=== PATIENT | female | born 1955 | race Caucasian/White ===

== ENCOUNTER → 2017-01-12 | Outpatient (CLI) | payer BC, OTHER ==
--- NOTE | 2017-01-16 07:41 | MM ---
Reason for exam: screening (asymptomatic). Last mammogram was performed 1 year and 1 month ago. History: Patient is postmenopausal and is nulliparous. Saline implants in both breasts, 1988. Physical Findings: A clinical breast exam by your physician is recommended on an annual basis and results should be correlated with mammographic findings. MG Screening Mammo Implant/CAD Bilateral CC, MLO, and ID view(s) were taken. Prior study comparison: December 07, 2015, bilateral MG screening mammo implant/CAD. July 31, 2008, bilateral diagnostic digital mammog. Bilateral breast prothesis. ASSESSMENT: Benign, BI-RAD 2 RECOMMENDATION: Routine screening mammogram of both breasts in 1 year.
== END | disposition home or self-care (01) ==
LOC: RADMAMWWP 07:01
PROVIDERS: ATTEND Family Medicine
DX: Z12.31 Encounter for screening mammogram for malignant neoplasm of breast (principal)

== ENCOUNTER 2017-08-14 10:09 | Emergency (ER) | payer BC ==
[2017-08-14 10:25] VITALS: TEMP 97.8
[2017-08-14] MEDS ORDERED: LORazepam 1 MG TAB PO STA (11:31)
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
[2017-08-14 12:16] VITALS: BP 148/81; PULSE 76; RESP 18
== END 2017-08-14 12:31 | disposition home or self-care (01) ==
LOC: EC 10:09
DX: S10.93XA Contusion of unspecified part of neck, initial encounter (principal); F41.9 Anxiety disorder, unspecified; E78.5 Hyperlipidemia, unspecified; E03.9 Hypothyroidism, unspecified; Z87.891 Personal history of nicotine dependence; Z79.899 Other long term (current) drug therapy; W50.1XXA Accidental kick by another person, initial encounter; Y92.211 Elementary school as the place of occurrence of the external cause
CPT/HCPCS: 70260; 72040; 99284

== ENCOUNTER 2017-10-03 15:52 | Emergency (ER) | payer BC, OTHER ==
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
[2017-10-03 16:36] VITALS: BP 134/81; PULSE 80; RESP 18; TEMP 98
--- NOTE | 2017-10-03 16:53 | XR ---
EXAMINATION TYPE: XR mandible complete DATE OF EXAM: 10/03/2017 COMPARISON: NONE HISTORY: Left-sided jaw pain TECHNIQUE: 5 views FINDINGS: Mandibular ring is intact. Temporomandibular joint spaces are normal. I see no fracture. Ma ndibular condyles appear intact. IMPRESSION: Negative mandible exam.
== END 2017-10-03 17:37 | disposition home or self-care (01) ==
LOC: EC 15:52
DX: S00.83XA Contusion of other part of head, initial encounter (principal); E78.5 Hyperlipidemia, unspecified; E03.9 Hypothyroidism, unspecified; Z87.891 Personal history of nicotine dependence; Z79.899 Other long term (current) drug therapy; W50.0XXA Accidental hit or strike by another person, initial encounter; Y99.0 Civilian activity done for income or pay
CPT/HCPCS: 70110; 99283

== ENCOUNTER 2017-10-11 15:52 | Emergency (ER) | payer BC, OTHER ==
[2017-10-11 16:01] VITALS: PULSE 80; RESP 20; TEMP 98.1
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
[2017-10-11 18:39] VITALS: BP 150/84
== END 2017-10-11 18:17 | disposition home or self-care (01) ==
LOC: EC 15:52
DX: S09.90XA Unspecified injury of head, initial encounter (principal); E78.5 Hyperlipidemia, unspecified; E03.9 Hypothyroidism, unspecified; F17.200 Nicotine dependence, unspecified, uncomplicated; Z98.890 Other specified postprocedural states; Z79.899 Other long term (current) drug therapy; Y04.0XXA Assault by unarmed brawl or fight, initial encounter; Y92.69 Other specified industrial and construction area as the place of occurrence of the external cause; Y99.0 Civilian activity done for income or pay
CPT/HCPCS: 70450; 70486; 99284

== ENCOUNTER → 2017-12-10 | Outpatient (CLI) | payer OTHER ==
--- NOTE | 2017-12-11 00:12 | MR ---
EXAMINATION TYPE: MR tmj wo con DATE OF EXAM: 12/10/2017 COMPARISON: HISTORY: Contusion of face, jaw pain Standard multiplanar, multisequence MRI departmental protocol Multiplanar, multisequence images of the temporomandibular joints were acquired. FINDINGS: There is some increased signal in the articular surface of the right mandibular condyle on the proton density images consistent with some erosion and arthritic change. The menisci are anterior ly displaced. I see no fracture line. There is fairly normal movement of the mandibular condyles on t he open and closed mouth position. IMPRESSION: Abnormal subluxation of the menisci anteriorly in the open and closed mouth position. Small erosion on the right mandibular condyle consistent with arthritic disease. No fracture.
== END | disposition home or self-care (01) ==
LOC: RADMRIMAIN 06:01
PROVIDERS: ATTEND Emergency Medicine
DX: S03.00XA Dislocation of jaw, unspecified side, initial encounter (principal); M26.69 Other specified disorders of temporomandibular joint
CPT/HCPCS: 70336

== ENCOUNTER 2022-12-14 16:17 | Observation (INO) | payer MEDICARE ==
[2022-12-14] MEDS ORDERED: ASPIRIN 81 MG PO STA (16:42)
[2022-12-14] MEDS ORDERED: SODIUM CHLORIDE 0.9% 500 ML 500 ML IV STA (16:42)
[2022-12-14 17:06] LABS: Basophils % (A) 0 %; Eosinophils # (A) 0.2 k/uL (0-0.7); Eosinophils % (A) 3 %; HCT 40.4 % (34.0-46.0); HGB 13.1 gm/dL (11.4-16.0); Lymphocytes # (A) 2.7 k/uL (1.0-4.8); Lymphocytes % (A) 32 %; MCH 30.7 pg (25.0-35.0); MCHC 32.4 g/dL (31.0-37.0); MCV 94.9 fL (80.0-100.0); Mean Platelet Volume 8.2; Monocytes # (A) 0.4 k/uL (0-1.0); Monocytes % (A) 5 %; Neutrophils # (A) 4.9 k/uL (1.3-7.7); Neutrophils % (A) 58 %; Platelet Count 200 k/uL (150-450); RBC 4.26 m/uL (3.80-5.40); RDW 14.2 % (11.5-15.5); WBC 8.4 k/uL (3.8-10.6)
[2022-12-14 17:19] LABS: ALT 34 U/L (4-34); AST 44 U/L (14-36); African American GFR (CKD) >90 (>60 ml/min/1.73 sqM); Albumin 3.9 g/dL (3.5-5.0); Alkaline Phosphatase 95 U/L (38-126); Anion Gap 9 mmol/L; Blood Urea Nitrogen 14 mg/dL (7-17); Calcium 9.2 mg/dL (8.4-10.2); Carbon Dioxide 21 mmol/L (22-30); Chloride 106 mmol/L (98-107); Glucose 102 mg/dL (74-99); Magnesium 1.6 mg/dL (1.6-2.3); Non-African American GFR(CKD) >90 (>60 ml/min/1.73 sqM); Sodium 136 mmol/L (137-145); Total Bilirubin 0.9 mg/dL (0.2-1.3); Total Protein 6.9 g/dL (6.3-8.2)
--- NOTE | 2022-12-14 17:20 | XR ---
EXAMINATION TYPE: XR chest 2V DATE OF EXAM: 12/14/2022 5:09 PM COMPARISON: Chest x-ray 11/17/2015 TECHNIQUE: XR chest 2V . CLINICAL INDICATION:Female, 67 years old with history of Chest Pain; FINDINGS: Lungs/Pleura: There is no evidence of pleural effusion, focal consolidation, or pneumothorax. Pulmonary vascularity: Unremarkable. Heart/mediastinum: Cardiomediastinal silhouette is unremarkable. Musculoskeletal: Multiple level degenerative disc disease changes seen throughout the spine. IMPRESSION: No acute cardiopulmonary disease/process.
[2022-12-14 17:22] LABS: Partial Thromboplastin Time 22.4 sec (22.0-30.0); Prothrombin Time 10.1 sec (9.0-12.0)
[2022-12-14 17:28] LABS: Potassium 4.6 mmol/L (3.5-5.1)
--- NOTE | 2022-12-14 17:34 | ED ---
Chest Pain HPI - General Chief Complaint: Chest Pain Stated Complaint: chest tightness Time Seen by Provider: 12/14/22 16:30 Source: patient Mode of arrival: wheelchair Limitations: no limitations - History of Present Illness Initial Comments: 67-year-old female presenting with chief complaint of chest pain. Patient states that a pressure-like sensation in the center of her chest started today. She does have some pain near the left shoulder blade as well. She does not note shortness of breath. No palpitations. She does note some discomfort to the left arm accompanied by tingling. No abdominal pain, nausea, vomiting. No cough, congestion, sore throat, fever, chills. No weakness. No alleviating or aggravating factors. - Related Data Home Medications Medication Instructions Recorded Confirmed Cyanocobalamin [Vitamin B-12 1,000 mcg SQ QMONTHLY 12/14/22 12/14/22 Injection] Levothyroxine Sodium [Synthroid] 137 mcg PO DAILY 12/14/22 12/14/22 Allergies Allergy/AdvReac Type Severity Reaction Status Date / Time No Known Allergies Allergy Verified 12/14/22 19:16 Review of Systems ROS Statement: Those systems with pertinent positive or pertinent negative responses have been documented in the HPI. ROS Other: All systems not noted in ROS Statement are negative. EKG Findings - EKG Comments: EKG Findings:: Sinus rhythm ventricular rate 94. OK interval 158. QRS 78. QT 352. QTC 404. Normal axis. Past Medical History Past Medical History: Hyperlipidemia, Thyroid Disorder Additional Past Medical History / Comment(s): back pain, cervical pain, L shoulder pain, numbness/tingling L shoulder, L arm and L hand at times for years, hypothyroid, recent R thumb sprain-healed, current R ankle tendon tear. History of Any Multi-Drug Resistant Organisms: None Reported Past Surgical History: Appendectomy, Breast Surgery, Orthopedic Surgery Additional Past Surgical History / Comment(s): Thyroid chemically removed, L ankle fx with pinning, colonoscopy, bilateral breast augmentation, Past Anesthesia/Blood Transfusion Reactions: No Reported Reaction Past Psychological History: No Psychological Hx Reported Smoking Status: Never smoker Past Alcohol Use History: Daily Past Drug Use History: None Reported - Past Family History Father Family Medical History: Coronary Artery Disease (CAD), Renal Disease Additional Family Medical History / Comment(s): Father of kidney failure at the age of 87yrs. Mother Family Medical History: Osteoarthritis (OA) Additional Family Medical History / Comment(s): Mother at 84 yrs. General Exam Limitations: no limitations General appearance: alert, in no apparent distress Head exam: Present: atraumatic, normocephalic, normal inspection Eye exam: Present: normal appearance, EOMI Neck exam: Present: normal inspection, full ROM Respiratory exam: Present: normal lung sounds bilaterally. Absent: respiratory distress, wheezes, rales, rhonchi, stridor Cardiovascular Exam: Present: regular rate, normal rhythm, normal heart sounds. Absent: systolic murmur, diastolic murmur, rubs, gallop, clicks GI/Abdominal exam: Present: soft, tenderness. Absent: distended, guarding, rebound, rigid Neurological exam: Present: alert, oriented X3, CN II-XII intact Psychiatric exam: Present: normal affect, normal mood Skin exam: Present: warm, dry, intact, normal color. Absent: rash Course Vital Signs 12/14/22 12/14/22 16:19 19:21 Temperature 98.4 F Pulse Rate 98 84 Respiratory 16 18 Rate Blood Pressure 151/96 135/84 O2 Sat by Pulse 97 98 Oximetry Chest Pain MDM - MDM Was pt. sent in by a medical professional or institution (, PA, DOCUMENT MANAGEMENT CONSULTANT, urgent care, hospital, or fpc...) When possible be specific @ -Sent by PCP Dr. Marroquin Did you speak to anyone other than the patient for history (EMS, parent, family, police, friend...)? What history was obtained from this source @ -No Did you review nursing and triage notes (agree or disagree)? Why? @ -I reviewed and agree with nursing and triage notes Were old charts reviewed (outside hosp., previous admission, EMS record, old EKG, old radiological studies, urgent care reports/EKG's, fpc records)? Report findings @ -No old charts were reviewed Differential Diagnosis (chest pain, altered mental status, abdominal pain women, abdominal pain men, vaginal bleeding, weakness, fever, dyspnea, syncope, headache, dizziness, GI bleed, back pain, seizure, CVA, palpatations, mental health, musculoskeletal)? @ -MDM Differential Chest Pain: Stable Angina, Unstable Angina, STEMI, NSTEMI Aortic Dissection, Pneumothorax, Musculoskeletal, Esophageal Spasm GERD, Cholecystitis, Pancreatitis, Zoster This is not meant to be an all-inclusive list. EKG interpreted by me (3pts min.). @ -As above X-rays interpreted by me (1pt min.). @ -Chest x-ray shows no acute process CT interpreted by me (1pt min.). @ -None done U/S interpreted by me (1pt. min.). @ -None done What testing was considered but not performed or refused? (CT, X-rays, U/S, labs)? Why? @ -None What meds were considered but not given or refused? Why? @ -None Did you discuss the management of the patient with other professionals (professionals i.e. , PA, DOCUMENT MANAGEMENT CONSULTANT, lab, RT, psych nurse, social media content manager, denture technician, teacher, quarantine officer, case checker)? Give summary @ -I spoke with Dr. Pham who accepted admission Was smoking cessation discussed for >3mins.? @ -No Was critical care preformed (if so, how long)? @ -No Were there social determinants of health that impacted care today? How? (Homelessness, low income, unemployed, alcoholism, drug addiction, transportation, low edu. Level, literacy, decrease access to med. care, long term, rehab)? @ -No Was there de-escalation of care discussed even if they declined (Discuss DNR or withdrawal of care, Hospice)? DNR status @ -No What co-morbidities impacted this encounter? (DM, HTN, Smoking, COPD, CAD, Cancer, CVA, ARF, Chemo, Hep., AIDS, mental health diagnosis, sleep apnea, morbid obesity)? @ -hyperlipidemia, obesity Was patient admitted / discharged? Hospital course, mention meds given and route, prescriptions, significant lab abnormalities, going to OR and other pertinent info. @ -67-year-old female presenting with chief complaint of chest pain that started today. Physical examination is unremarkable. Patient has negative troponin and d-dimer. Chest x-ray shows no acute process. EKG shows no acute changes. Patient will be admitted for observation and evaluation by cardiology in the morning. She is agreeable with this plan. I discussed this case with my attending Dr. Aranda Undiagnosed new problem with uncertain prognosis? @ -No Drug Therapy requiring intensive monitoring for toxicity (Heparin, Nitro, Insulin, Cardizem)? @ -No Were any procedures done? @ -No Diagnosis/symptom? @ -Chest pain Acute, or Chronic, or Acute on Chronic? @ -Acute Uncomplicated (without systemic symptoms) or Complicated (systemic symptoms)? @ -Complicated Side effects of treatment? @ -No Exacerbation, Progression, or Severe Exacerbation? @ -No Poses a threat to life or bodily function? How? (Chest pain, USA, SC, pneumonia, PE, COPD, DKA, ARF, appy, cholecystitis, CVA, Diverticulitis, Homicidal, Karla cidal, threat to staff... and all critical care pts) @ -Yes Disposition Clinical Impression: Chest pain Disposition: ADMITTED IP TO THIS HOSP Condition: Fair Time of Disposition: 18:40
[2022-12-14] MEDS ORDERED: LORazepam 1 MG TAB PO STA (18:24)
[2022-12-14] MEDS ORDERED: NALOXONE 0.4 MG/ML 1 ML VIAL IV PRN (18:37)
[2022-12-14] MEDS ORDERED: ACETAMINOPHEN TAB 325 MG TAB PO PRN (18:37)
[2022-12-14] MEDS ORDERED: LORazepam 0.5 MG TAB PO PRN (18:37)
[2022-12-15] MEDS ORDERED: DOBUTamine DRIP for NUC MED 500 MG in DEXTROSE/WATER 1 250ML.BAG IV PRN (07:38)
[2022-12-15] MEDS ORDERED: DOBUTamine DRIP for NUC MED 500 MG/250 ML BAG IV ONE (09:00)
[2022-12-15 09:02] VITALS: BP 123/86; PULSE 77; RESP 17; TEMP 97.5
--- NOTE | 2022-12-15 09:55 | P.CRDCN ---
History of Present Illness History of present illness: HISTORY OF PRESENT ILLNESS: This is a 67-year-old female with a past medical history significant for hyperlipidemia not requiring statin therapy, hypothyroidism, morbid obesity, and Alvaro-Valdez. Patient does not follow with a radio talk show host. We have been asked to see the patient in consultation for chest pain. Patient examined at the bedside. Patient states on Sunday night she began to have swelling in her left lower extremity. On , she began to have chest pain. She states this started after she came back from walking from a neighbors house. She states the pain felt like a heaviness in the middle of her chest. She states that she also had back pain at that time. She also reports she has been having some tingling in her left arm. She states that she recently gets very short of breath with any exertion. She states that she was recently diagnosed with Alvaro-Valdez virus and has been fairly inactive for the past 2 months. * EKG reveals sinus mechanism with no signs of acute ischemia * Chest xray negative for acute process * Laboratory data: WBC 8.4. Hemoglobin 13.1. Platelet count 200. D-dimer 0.49. Sodium 136. Potassium 4.6. BUN 14. Creatinine 0.53. Troponin 3 * Current home cardiac medications include none * Patient underwent stress echocardiogram in October 2015 which was negative for ischemia REVIEW OF SYSTEMS: At the time of my exam: CONSTITUTIONAL: Denies fever or chills. HEENT: Denies blurred vision, vision changes, or eye pain. Denies hemoptysis CARDIOVASCULAR: Denies chest pain. Denies orthopnea. Denies PND. Denies palpitations RESPIRATORY: Denies shortness of breath. GASTROINTESTINAL: Denies abdominal pain. Denies nausea or vomiting. HEMATOLOGIC: Denies bleeding disorders. GENITOURINARY: Denies any blood in urine. SKIN: Denies pruitis. Denies rash. PHYSICAL EXAM: VITAL SIGNS: Reviewed. GENERAL: Well-developed in no acute distress. HEENT: Head is normocephalic. Pupils are equal, round. Sclerae anicteric. Mucous membranes of the mouth are moist. Neck supple. No JVD or thyromegaly LUNGS: Respirations even and unlabored. Lungs essentially clear to auscultation bilaterally. HEART: Regular rate and rhythm. S1 and S2 heard. ABDOMEN: Soft. Nondistended. Nontender. EXTREMITIES: Normal range of motion. No clubbing or cyanosis. Peripheral pulses intact. No lower extremity edema NEUROLOGIC: Awake and alert. Oriented x 3. ASSESSMENT: Chest pain, troponins negative 3 Hyperlipidemia, not requiring statin therapy per patient Recent diagnosis of Alvaro-Valdez Hypothyroidism Morbid obesity: BMI 41.1 PLAN: An acute coronary event has been ruled out Obtain 2-D echo to assess cardiac structure and function Patient will undergo dobutamine stress test today to assess for ischemia Lipid panel and hemoglobin A1c pending If stress test is negative, patient may be discharged home today from a cardiac standpoint Nurse practitioner note has been reviewed by physician. Signing provider agrees with the documented findings, assessment, and plan of care. Dr. Junior's Addendum Atypical description of her chest pain Risk factors for coronary artery disease includes dyslipidemia, morbid obesity Patient is unable to walk more than one block due to poor exercise capacity. We will obtain dobutamine stress echo. If echo and stress test are negative she can go home. Importance of daily exercise, increasing exercise capacity and importance of weight reduction was emphasized. Patient understands and will follow-up in cardiology clinic I have personally seen and examined the patient. I have personally performed all the components of medical care documented above including detailed hisotry, review of system, physican exam, MDM and formulating the assessment and plan. I have personally reviewed the relevant labs, imaging and other diagnostics. I have discussed this in detail with my SURVEY WORKER who has helped me with this documentation. I have carefully reviewed this document before finalizing. Total time spent reviewing medical chart, examining patient, counselling patient and documentation [45] mins Thank you for letting cardiology team participating in this patient's care. Dr. Carlos Junior MD Cardiovascular Disease Past Medical History Past Medical History: Hyperlipidemia, Thyroid Disorder Additional Past Medical History / Comment(s): back pain, cervical pain, L shoulder pain, numbness/tingling L shoulder, L arm and L hand at times for years, hypothyroid, recent R thumb sprain-healed, current R ankle tendon tear. History of Any Multi-Drug Resistant Organisms: None Reported Past Surgical History: Appendectomy, Breast Surgery, Orthopedic Surgery Additional Past Surgical History / Comment(s): Thyroid chemically removed, L ankle fx with pinning, colonoscopy, bilateral breast augmentation, Past Anesthesia/Blood Transfusion Reactions: No Reported Reaction Past Psychological History: No Psychological Hx Reported Smoking Status: Never smoker Past Alcohol Use History: Daily Past Drug Use History: None Reported - Past Family History Father Family Medical History: Coronary Artery Disease (CAD), Renal Disease Additional Family Medical History / Comment(s): Father of kidney failure at the age of 87yrs. Mother Family Medical History: Osteoarthritis (OA) Additional Family Medical History / Comment(s): Mother at 84 yrs. Medications and Allergies Home Medications Medication Instructions Recorded Confirmed Type Cyanocobalamin [Vitamin B-12 1,000 mcg SQ QMONTHLY 12/14/22 12/14/22 History Injection] Levothyroxine Sodium [Synthroid] 137 mcg PO DAILY 12/14/22 12/14/22 History Allergies Allergy/AdvReac Type Severity Reaction Status Date / Time No Known Allergies Allergy Verified 12/14/22 19:16 Physical Exam Vitals: Vital Signs Temp Pulse Pulse Resp BP BP Pulse Ox 12/15/22 01:30 97.9 F 92 18 118/73 96 12/14/22 21:13 97.6 F 78 16 144/87 96 12/14/22 19:21 84 18 135/84 98 12/14/22 16:19 98.4 F 98 16 151/96 97 Intake and Output 12/14/22 12/15/22 12/15/22 22:59 06:59 14:59 Other: # Voids 1 3 Weight 112.037 kg Results 12/14/22 16:58 12/14/22 16:58 Cardiac Enzymes 12/14/22 12/14/22 12/14/22 Range/Units 16:58 16:58 22:02 AST 44 H (14-36) U/L Troponin I <0.012 <0.012 (0.000-0.034) ng/mL 12/15/22 Range/Units 00:05 AST (14-36) U/L Troponin I <0.012 (0.000-0.034) ng/mL Coagulation 12/14/22 Range/Units 16:58 PT 10.1 (9.0-12.0) sec APTT 22.4 (22.0-30.0) sec CBC 12/14/22 Range/Units 16:58 WBC 8.4 (3.8-10.6) k/uL RBC 4.26 (3.80-5.40) m/uL Hgb 13.1 (11.4-16.0) gm/dL Hct 40.4 (34.0-46.0) % Plt Count 200 (150-450) k/uL Comprehensive Metabolic Panel 12/14/22 Range/Units 16:58 Sodium 136 L (137-145) mmol/L Potassium 4.6 (3.5-5.1) mmol/L Chloride 106 (98-107) mmol/L Carbon Dioxide 21 L (22-30) mmol/L BUN 14 (7-17) mg/dL Creatinine 0.53 (0.52-1.04) mg/dL Glucose 102 H (74-99) mg/dL Calcium 9.2 (8.4-10.2) mg/dL AST 44 H (14-36) U/L ALT 34 (4-34) U/L Alkaline Phosphatase 95 (38-126) U/L Total Protein 6.9 (6.3-8.2) g/dL Albumin 3.9 (3.5-5.0) g/dL Current Medications Generic Name Dose Route Start Last Admin Trade Name Freq PRN Reason Stop Dose Admin Acetaminophen 650 mg 12/14/22 18:37 Acetaminophen Tab 325 Mg Tab PO Q6HR PRN Mild Pain or Fever > 100.5 Lorazepam 0.5 mg 12/14/22 18:37 Lorazepam 0.5 Mg Tab PO Q6HR PRN Anxiety Naloxone HCl 0.2 mg 12/14/22 18:37 Naloxone 0.4 Mg/Ml 1 Ml Vial IV Q2M PRN Opioid Reversal Intake and Output 12/14/22 12/15/22 12/15/22 22:59 06:59 14:59 Other: # Voids 1 3 Weight 112.037 kg 12/14/22 16:58 12/14/22 16:58
--- NOTE | 2022-12-15 13:06 | CA ---
Dobutamine Stress Echocardiogram Report Lita Adair Age: 67 Gender: F : 1955 Exam Date: 12/15/2022 12:08 Exam Location: [facility] Ordering Physician: Deena Moreno Referring Physician: [id number] Carpenter Maintenance: Sonia Alvarado [facility] Technologist: Ht (in): 65 Wt (lb): 247 Procedure CPT: Indication: CP ICD-9 Codes: Rhythm: Patient History: Cardiac Medications: SEE CHART Medications in past 24 hours: Contrast: N/A Total Dose (mL): Stress Results Protocol: Dobutamine Peak Dose (???g/kg/min): 20 Duration (min:sec): Atropine:(mg) None Target HR: 131 Double Product: [id number] Resting HR: 83 Resting BP: 128 / 74 Peak HR: 153 Peak BP: 167 / 65 Max Predicted HR: 154 99 % Max Predicted HR Stress Summary: BP Response: Reason for Termination: Exceeded target heart rate (85% max predicted) Cardiac Symptoms: NO SYMPTOMS ECG Analysis Resting EKG: Normal sinus rhythm, normal axis and no blocks heart rate 83 beats a minute Stress EKG: No significant ST-T wave changes diagnostic for ischemia by ST segment analysis Arrhythmia: None Echo Analysis Base Echo Analysis: Normal global and regional wall motion at rest Low Echo Anaylsis: Appropriate augmentation of all echocardiographic segments at low-dose dobutamine Peak Echo Analysis: Appropriate augmentation of all echocardiographic segments at Peak-dose dobutamine Recovery Echo: Appropriate augmentation of all echocardiographic segments at recovery MEASUREMENTS (Male/Female) Normal Values CONCLUSIONS Normal resting wall motion Nonischemic echocardiographic response to dobutamine infusion Nonischemic EKG response to dobutamine infusion Overall normal dobutamine stress echo cardiographic study Dr Carlos Junior (Electronically Signed) Final Date: 15 December 2022 13:05
--- NOTE | 2022-12-15 13:11 | CA ---
Transthoracic Echo Report Name: Lita Adair Age: 67 Gender: F : 1955 Exam Date: 12/15/2022 10:36 Exam Location: [facility] Ht (in): 65 Wt (lb): 247 Ordering Physician: Deena Moreno Attending/Referring Phys: [id number], Tiffanie Oil Spot Washer Jose Summers Procedure CPT: Indications: LV function, CP Cardiac Hx: Technical Quality: Technically difficult study Contrast 1: Total Dose (mL): Contrast 2: Total Dose (mL): MEASUREMENTS (Male / Female) Normal Values 2D ECHO LV Diastolic Diameter PLAX 4.5 cm 4.2 - 5.9 / 3.9 - 5.3 cm LV Systolic Diameter PLAX 3.0 cm IVS Diastolic Thickness 0.8 cm 0.6 - 1.0 / 0.6 - 0.9 cm LVPW Diastolic Thickness 0.9 cm 0.6 - 1.0 / 0.6 - 0.9 cm LV Relative Wall Thickness 0.4 RV Internal Dim ED PLAX 3.1 cm LVOT Diameter 1.9 cm Aortic Root Diameter 2.8 cm LA Systolic Diameter LX 3.1 cm 3.0 - 4.0 / 2.7 - 3.8 cm LV Diastolic Volume MOD BP 56.8 cm??? 67 - 155 / 56 - 104 cm??? LV Systolic Volume MOD BP 32.6 cm??? 22 - 58 / 19 - 49 cm??? LV Ejection Fraction MOD BP 42.6 % >= 55 % LV Cardiac Index MOD BP 780.8 cm???/min???m??? LV Diastolic Volume MOD 4C 58.5 cm??? LV Systolic Volume MOD 4C 29.5 cm??? LV Ejection Fraction MOD 4C 49.6 % LV Cardiac Index MOD 4C 936.8 cm???/min???m??? LV Diastolic Length 4C 6.4 cm LV Systolic Length 4C 6.1 cm LV Diastolic Volume MOD 2C 53.6 cm??? LV Systolic Volume MOD 2C 33.6 cm??? LV Ejection Fraction MOD 2C 37.4 % LV Cardiac Index MOD 2C 646.4 cm???/min???m??? LV Diastolic Length 2C 6.2 cm LV Systolic Length 2C 5.6 cm LA Volume 39.6 cm??? 18 - 58 / 22 - 52 cm??? Ascending Aorta Diameter 2.8 cm DOPPLER AV Peak Velocity 119.6 cm/s AV Peak Gradient 5.7 mmHg LVOT Peak Velocity 89.4 cm/s LVOT Peak Gradient 3.2 mmHg AV Area Cont Eq pk 2.1 cm??? MV Peak Velocity 101.7 cm/s MV Peak Gradient 4.1 mmHg MV Mean Velocity 49.5 cm/s MV Mean Gradient 1.3 mmHg MV Velocity Time Integral 27.4 cm MV Area PHT 4.5 cm??? MR Peak Velocity 194.0 cm/s MR Peak Gradient 15.0 mmHg Mitral E Point Velocity 73.9 cm/s Mitral A Point Velocity 85.3 cm/s Mitral E to A Ratio 0.9 MV Deceleration Time 167.4 ms TR Peak Velocity 111.5 cm/s TR Peak Gradient 5.0 mmHg Right Ventricular Systolic Press 10.0 mmHg PV Peak Velocity 109.4 cm/s PV Peak Gradient 4.8 mmHg FINDINGS Left Ventricle Normal LV size and wall thickness. Left ventricular ejection fraction is estimated at _55-60 %. no obvious regional wall motion abnormality at rest. No significant diastolic dysfunction Right Ventricle Normal right ventricular size. Right Atrium Normal right atrial size. Left Atrium Normal left atrial size. Mitral Valve Structurally normal mitral valve. Trace MR. Aortic Valve Trileaflet aortic valve. No aortic valve stenosis or regurgitation. Tricuspid Valve Structurally normal tricuspid valve. Trace TR. Pulmonic Valve Pulmonic valve not well visualized. No pulmonic regurgitation. Pericardium No pericardial effusion. Aorta Normal size aortic root and proximal ascending aorta. CONCLUSIONS Normal LV size, wall thickness and systolic function. LVEF estimated at 55% No obvious regional wall motion abnormality at rest. No significant diastolic dysfunction. No significant valvular dysfunction No significant chamber size abnormality No prior echo in [facility] database to compare Previewed by: Dr Carlos Junior (Electronically Signed) Final Date: 15 December 2022 13:10
--- NOTE | 2022-12-15 13:30 | P.HPIM ---
History of Present Illness H&P Date: 12/15/22 History of present illness; patient is a 67-year-old lady with past medical hist ory significant for hypothyroidism, who presented to the ER because of chest pressure. Patient stated she was all right this afternoon when she started noticing chest pressure, it was central in location radiating to her left shoulder, denied any aggravating or relieving factors associated with this chest pressure, denies any shortness of breath associated with it. Denies any palpitations. No complain of orthopnea or PND. Denies any swelling of feet. Patient did not have any such episodes in the past. Because of chest pressure, patient came to the ER Initial lab work done in the ER showed WBC 8.4, hemoglobin 13.1, platelet count 200, sodium, potassium 4.6, BUN 14, creatinine 0.53, troponin 0.012 EKG done in the ER showed heart rate 94, QRS 78, QTC 404, no acute ST segment changes seen in any leads, no T-wave inversions Chest x-ray done in the ER no acute cardiopulmonary process REVIEW OF SYSTEMS: CONSTITUTIONAL: No fever, no malaise, no fatigue. HEENT: No recent visual problems or hearing problems. Denied any sore throat. CARDIOVASCULAR: As mentioned in HPI PULMONARY: As mentioned in HPI GASTROINTESTINAL: No diarrhea, no nausea, no vomiting, no abdominal pain. NEUROLOGICAL: No headaches, no weakness, no numbness. HEMATOLOGICAL: Denies any bleeding or petechiae. GENITOURINARY: Denies any burning micturition, frequency, or urgency. MUSCULOSKELETAL/RHEUMATOLOGICAL: Denies any joint pain, swelling, or any muscle pain. ENDOCRINE: Denies any polyuria or polydipsia. The rest of the 14-point review of systems is negative. PHYSICAL EXAMINATION: GENERAL: The patient is alert and oriented x3, not in any acute distress. Well developed, well nourished. HEENT: Pupils are round and equally reacting to light. EOMI. No scleral icterus. No conjunctival pallor. Normocephalic, atraumatic. No pharyngeal erythema. No thyromegaly. CARDIOVASCULAR: S1 and S2 present. No murmurs, rubs, or gallops. PULMONARY: Chest is clear to auscultation, no wheezing or crackles. ABDOMEN: Soft, nontender, nondistended, normoactive bowel sounds. No palpable organomegaly. MUSCULOSKELETAL: No joint swelling or deformity. EXTREMITIES: No cyanosis, clubbing, or pedal edema. NEUROLOGICAL: Gross neurological examination did not reveal any focal deficits. SKIN: No rashes. Assessment and plan Chest pain Hypothyroidism Monitor vital signs Monitor CBC Monitor CMP Continue telemetry monitoring Trend troponins Check d-dimer Resume home meds Consult cardiology Labs and medication were reviewed.. Continue same treatment. Continue with symptomatic treatment. Resume home medication. Monitor labs and vitals. DVT and GI prophylaxis. Further recommendations as per clinical course of the patient Dictation was produced using [employer] dictation software. please excuse any gram matical, word or spelling errors. Past Medical History Past Medical History: Hyperlipidemia, Thyroid Disorder Additional Past Medical History / Comment(s): back pain, cervical pain, L shoulder pain, numbness/tingling L shoulder, L arm and L hand at times for years, hypothyroid, recent R thumb sprain-healed, current R ankle tendon tear. History of Any Multi-Drug Resistant Organisms: None Reported Past Surgical History: Appendectomy, Breast Surgery, Orthopedic Surgery Additional Past Surgical History / Comment(s): Thyroid chemically removed, L ankle fx with pinning, colonoscopy, bilateral breast augmentation, Past Anesthesia/Blood Transfusion Reactions: No Reported Reaction Past Psychological History: No Psychological Hx Reported Smoking Status: Never smoker Past Alcohol Use History: Daily Past Drug Use History: None Reported - Past Family History Father Family Medical History: Coronary Artery Disease (CAD), Renal Disease Additional Family Medical History / Comment(s): Father of kidney failure at the age of 87yrs. Mother Family Medical History: Osteoarthritis (OA) Additional Family Medical History / Comment(s): Mother at 84 yrs. Medications and Allergies Home Medications Medication Instructions Recorded Confirmed Type Cyanocobalamin [Vitamin B-12 1,000 mcg SQ QMONTHLY 12/14/22 12/14/22 History Injection] Levothyroxine Sodium [Synthroid] 137 mcg PO DAILY 12/14/22 12/14/22 History Allergies Allergy/AdvReac Type Severity Reaction Status Date / Time No Known Allergies Allergy Verified 12/14/22 19:16 Physical Exam Vitals: Vital Signs Temp Pulse Pulse Resp BP BP Pulse Ox 12/15/22 07:00 97.5 F L 77 17 123/86 97 07/21/23 01:30 97.9 F 92 18 118/73 96 12/14/22 21:13 97.6 F 78 16 144/87 96 12/14/22 19:21 84 18 135/84 98 12/14/22 16:19 98.4 F 98 16 151/96 97 Intake and Output 12/14/22 12/15/22 12/15/22 22:59 06:59 14:59 Other: # Voids 1 3 Weight 112.037 kg Results CBC & Chem 7: 12/14/22 16:58 12/14/22 16:58 Labs: Abnormal Lab Results - Last 24 Hours (Table) 12/14/22 Range/Units 16:58 Sodium 136 L (137-145) mmol/L Carbon Dioxide 21 L (22-30) mmol/L Glucose 102 H (74-99) mg/dL AST 44 H (14-36) U/L Thrombosis Risk Factor Assmnt - Choose All That Apply Any of the Below Risk Factors Present?: Yes Each Factor Represents 1 point: Obesity (BMI >25) Other Risk Factors: Yes Each Risk Factor Represents 2 Points: Age 61-74 years Other congenital or acquired thrombophilia - If yes, enter type in comment: No Thrombosis Risk Factor Assessment Total Risk Factor Score: 3 Thrombosis Risk Factor Assessment Level: Moderate Risk
[2022-12-15 16:45] LABS: Chol/HDL Ratio 5.11 Ratio; LDL Cholesterol,Calculated 135.9 mg/dL (0.0-131.0)
[2022-12-16] MEDS ORDERED: LEVOTHYROXINE 137 MCG TAB PO SCH (06:30)
[2023-01-13] MEDS ORDERED: CYANOCOBALAMIN 1,000 MCG/ML 1 ML VIAL SQ SCH (09:00)
== END 2022-12-15 14:44 | disposition home or self-care (01) ==
LOC: EC 16:17 → 6NMEDSUR 17:45
PROVIDERS: ADMIT Internal Medicine; ATTEND Internal Medicine
DX: R07.89 Other chest pain (principal); E03.9 Hypothyroidism, unspecified; B27.00 Gammaherpesviral mononucleosis without complication; E66.01 Morbid (severe) obesity due to excess calories; Z68.41 Body mass index [BMI] 40.0-44.9, adult; M54.2 Cervicalgia; M54.9 Dorsalgia, unspecified; M25.512 Pain in left shoulder; R20.0 Anesthesia of skin; M79.89 Other specified soft tissue disorders; E78.5 Hyperlipidemia, unspecified; Z79.890 Hormone replacement therapy; Z82.49 Family history of ischemic heart disease and other diseases of the circulatory system
CPT/HCPCS: 96360; 99285; 36415; 93005; 93306; 93351; 85379; 80061; 80053; 83735; 84484 ×2; 85025; 85610; 85730; 83036; 71046; G0378 ×2; J1250

== ENCOUNTER 2023-01-20 18:31 | Emergency (ER) | payer MEDICARE ==
[2023-01-20] MEDS ORDERED: SODIUM CHLORIDE 0.9% 500 ML 500 ML IV STA (18:56)
--- NOTE | 2023-01-20 19:05 | ED ---
General Adult HPI - General Chief complaint: Arrhythmia/Palpitations Stated complaint: ELEVATED HEART RATE Time Seen by Provider: 01/20/23 18:51 Source: patient, RN notes reviewed, old records reviewed Mode of arrival: ambulatory Limitations: no limitations - History of Present Illness Initial comments: 67-year-old female with elevated heart rate, palpitations. No prior history of dysrhythmia. Patient has history of hypothyroidism without any recent medication changes. Symptoms began today and she had elevated heart rates up into the 160s. She denies significant dyspnea. Denies fever. Denies chest pain or abdominal pain. Denies vomiting or diarrhea. No dysuria or hematuria. - Related Data Home Medications Medication Instructions Recorded Confirmed Cyanocobalamin [Vitamin B-12 1,000 mcg SQ QMONTHLY 12/14/22 12/14/22 Injection] Levothyroxine Sodium [Synthroid] 137 mcg PO DAILY 12/14/22 12/14/22 Allergies Allergy/AdvReac Type Severity Reaction Status Date / Time No Known Allergies Allergy Verified 01/20/23 18:39 Review of Systems ROS Statement: Those systems with pertinent positive or pertinent negative responses have been documented in the HPI. ROS Other: All systems not noted in ROS Statement are negative. Past Medical History Past Medical History: Hyperlipidemia, Thyroid Disorder Additional Past Medical History / Comment(s): back pain, cervical pain, L shoulder pain, numbness/tingling L shoulder, L arm and L hand at times for years, hypothyroid, recent R thumb sprain-healed, current R ankle tendon tear. History of Any Multi-Drug Resistant Organisms: None Reported Past Surgical History: Appendectomy, Breast Surgery, Orthopedic Surgery Additional Past Surgical History / Comment(s): Thyroid chemically removed, L ankle fx with pinning, colonoscopy, bilateral breast augmentation, Past Anesthesia/Blood Transfusion Reactions: No Reported Reaction Past Psychological History: No Psychological Hx Reported Smoking Status: Never smoker Past Alcohol Use History: Daily Past Drug Use History: None Reported - Past Family History Father Family Medical History: Coronary Artery Disease (CAD), Renal Disease Additional Family Medical History / Comment(s): Father of kidney failure at the age of 87yrs. Mother Family Medical History: Osteoarthritis (OA) Additional Family Medical History / Comment(s): Mother at 84 yrs. General Exam Limitations: no limitations General appearance: alert, in no apparent distress Head exam: Present: atraumatic, normocephalic Eye exam: Present: normal appearance, PERRL ENT exam: Present: normal exam Neck exam: Present: normal inspection. Absent: tenderness, meningismus Respiratory exam: Present: normal lung sounds bilaterally. Absent: respiratory distress, wheezes Cardiovascular Exam: Present: normal rhythm, tachycardia GI/Abdominal exam: Present: soft. Absent: distended, tenderness, guarding Extremities exam: Present: normal inspection, normal capillary refill. Absent: pedal edema Neurological exam: Present: alert, oriented X3, CN II-XII intact. Absent: motor sensory deficit Psychiatric exam: Present: normal affect, normal mood Skin exam: Present: warm, dry, intact, normal color. Absent: cyanosis, diaphoretic, pallor Course Vital Signs 01/20/23 01/20/23 01/20/23 18:36 19:00 19:30 Temperature 97.7 F Pulse Rate 168 H 113 H 90 Respiratory 18 17 17 Rate Blood Pressure 133/79 135/80 O2 Sat by Pulse 95 Oximetry Medical Decision Making - Medical Decision Making Was pt. sent in by a medical professional or institution (, PA, SHELL REPRINT OPERATOR, urgent care, hospital, or intermediate...) When possible be specific @ -No Did you speak to anyone other than the patient for history (EMS, parent, family, police, friend...)? What history was obtained from this source @ -No Did you review nursing and triage notes (agree or disagree)? Why? @ -I reviewed and agree with nursing and triage notes Were old charts reviewed (outside hosp., previous admission, EMS record, old EKG, old radiological studies, urgent care reports/EKG's, intermediate records)? Report findings @ -[Patient had normal echo and negative. Negative dobutamine stress test one month ago Differential Diagnosis (chest pain, altered mental status, abdominal pain women, abdominal pain men, vaginal bleeding, weakness, fever, dyspnea, syncope, headache, dizziness, GI bleed, back pain, seizure, CVA, palpatations, mental health, musculoskeletal)? @ -Differential Palpitations Ventricular arrhythmias, atrial arrhythmias, myocardial infarction, anemia, thyrotoxicosis, electrolyte imbalance, hypokalemia, pulmonary embolism, pulmonary disease, drugs, alcohol, anxiety, stress.... This is not meant to be an all-inclusive list. EKG interpreted by me (3pts min.). @Sinus tachycardia, low voltage, rate of 124, IA interval 166, QRS duration 78, QTC 371, no ST segment elevation. Repeat EKG [id number] sinus rhythm, low voltage, rate of 95, IA interval 156, QRS duration 80, QTc 384, no ST segment elevation X-rays interpreted by me (1pt min.). @ -Chest x-ray negative for acute cardio pulmonary findings CT interpreted by me (1pt min.). @ -None done U/S interpreted by me (1pt. min.). @ -None done What testing was considered but not performed or refused? (CT, X-rays, U/S, labs)? Why? @ -None What meds were considered but not given or refused? Why? @ -None Did you discuss the management of the patient with other professionals (professionals i.e. , PA, SHELL REPRINT OPERATOR, lab, RT, psych nurse, social services manager, or manager, teacher, chief operations officer, embedded case manager)? Give summary @ -No Was smoking cessation discussed for >3mins.? @ -No Was critical care preformed (if so, how long)? @ -No Were there social determinants of health that impacted care today? How? (Homelessness, low income, unemployed, alcoholism, drug addiction, transportation, low edu. Level, literacy, decrease access to med. care, nursing home, rehab)? @ -No Was there de-escalation of care discussed even if they declined (Discuss DNR or withdrawal of care, Hospice)? DNR status @ -No What co-morbidities impacted this encounter? (DM, HTN, Smoking, COPD, CAD, Cancer, CVA, ARF, Chemo, Hep., AIDS, mental health diagnosis, sleep apnea, morbid obesity)? @ Hypothyroidism Was patient admitted / discharged? Hospital course, mention meds given and route, prescriptions, significant lab abnormalities, going to OR and other pertinent info. @ -[67-year-old female presenting for evaluation of palpitation, tachycardia. Initial heart rate is in the 120s which is sinus mechanism, no ischemic changes. Chest x-ray is clear. Patient has normal CBC without leukocytosis or anemia. Normal electrolytes, negative troponin, negative d-dimer. Mild transaminitis. Heart rate does normalize in the emergency department with only IV fluids. Patient symptoms improve. I do feel she is stable for discharge at this time she will follow-up with her primary care provider. If symptoms return she will return to the emergency department. Undiagnosed new problem with uncertain prognosis? @ -No Drug Therapy requiring intensive monitoring for toxicity (Heparin, Nitro, Insulin, Cardizem)? @ -No Were any procedures done? @ -No Diagnosis/symptom? @ Palpitations, tachycardia resolved Acute, or Chronic, or Acute on Chronic? @ Acute Uncomplicated (without systemic symptoms) or Complicated (systemic symptoms)? @ -default Side effects of treatment? @ -No Exacerbation, Progression, or Severe Exacerbation? @ -No Poses a threat to life or bodily function? How? (Chest pain, [place], [place], pneumonia, PE, COPD, DKA, ARF, appy, cholecystitis, CVA, Diverticulitis, Homicidal, Suici lefty, threat to staff... and all critical care pts) @ Low risk at this time - Lab Data Result diagrams: 01/20/23 18:59 01/20/23 18:59 Lab Results 01/20/23 01/20/23 01/20/23 Range/Units 18:59 18:59 18:59 WBC 10.5 (3.8-10.6) k/uL RBC 4.65 (3.80-5.40) m/uL Hgb 15.1 (11.4-16.0) gm/dL Hct 44.9 (34.0-46.0) % MCV 96.7 (80.0-100.0) fL MCH 32.4 (25.0-35.0) pg MCHC 33.6 (31.0-37.0) g/dL RDW 14.7 (11.5-15.5) % Plt Count 270 (150-450) k/uL MPV 8.7 Neutrophils % 61 % Lymphocytes % 32 % Monocytes % 4 % Eosinophils % 2 % Basophils % 0 % Neutrophils # 6.4 (1.3-7.7) k/uL Lymphocytes # 3.4 (1.0-4.8) k/uL Monocytes # 0.4 (0-1.0) k/uL Eosinophils # 0.2 (0-0.7) k/uL Basophils # 0.0 (0-0.2) k/uL PT 10.2 (9.0-12.0) sec INR 1.0 (<1.2) APTT 22.8 (22.0-30.0) sec D-Dimer 0.45 (<0.60) mg/L FEU Sodium 136 L (137-145) mmol/L Potassium 3.9 (3.5-5.1) mmol/L Chloride 100 (98-107) mmol/L Carbon Dioxide 27 (22-30) mmol/L Anion Gap 9 mmol/L BUN 17 (7-17) mg/dL Creatinine 0.72 (0.52-1.04) mg/dL Est GFR (CKD-EPI)AfAm >90 (>60 ml/min/1.73 sqM) Est GFR (CKD-EPI)NonAf 88 (>60 ml/min/1.73 sqM) Glucose 159 H (74-99) mg/dL Calcium 10.3 H (8.4-10.2) mg/dL Magnesium 1.6 (1.6-2.3) mg/dL Total Bilirubin 0.9 (0.2-1.3) mg/dL AST 84 H (14-36) U/L ALT 55 H (4-34) U/L Alkaline Phosphatase 90 (38-126) U/L Troponin I (0.000-0.034) ng/mL Total Protein 6.7 (6.3-8.2) g/dL Albumin 3.9 (3.5-5.0) g/dL TSH 0.812 (0.465-4.680) mIU/L Influenza Type A (PCR) (Not Detectd) Influenza Type B (PCR) (Not Detectd) RSV (PCR) (Not Detectd) SARS-CoV-2 (PCR) (Not Detectd) 01/20/23 01/20/23 Range/Units 18:59 18:59 WBC (3.8-10.6) k/uL RBC (3.80-5.40) m/uL Hgb (11.4-16.0) gm/dL Hct (34.0-46.0) % MCV (80.0-100.0) fL MCH (25.0-35.0) pg MCHC (31.0-37.0) g/dL RDW (11.5-15.5) % Plt Count (150-450) k/uL MPV Neutrophils % % Lymphocytes % % Monocytes % % Eosinophils % % Basophils % % Neutrophils # (1.3-7.7) k/uL Lymphocytes # (1.0-4.8) k/uL Monocytes # (0-1.0) k/uL Eosinophils # (0-0.7) k/uL Basophils # (0-0.2) k/uL PT (9.0-12.0) sec INR (<1.2) APTT (22.0-30.0) sec D-Dimer (<0.60) mg/L FEU Sodium (137-145) mmol/L Potassium (3.5-5.1) mmol/L Chloride (98-107) mmol/L Carbon Dioxide (22-30) mmol/L Anion Gap mmol/L BUN (7-17) mg/dL Creatinine (0.52-1.04) mg/dL Est GFR (CKD-EPI)AfAm (>60 ml/min/1.73 sqM) Est GFR (CKD-EPI)NonAf (>60 ml/min/1.73 sqM) Glucose (74-99) mg/dL Calcium (8.4-10.2) mg/dL Magnesium (1.6-2.3) mg/dL Total Bilirubin (0.2-1.3) mg/dL AST (14-36) U/L ALT (4-34) U/L Alkaline Phosphatase (38-126) U/L Troponin I <0.012 (0.000-0.034) ng/mL Total Protein (6.3-8.2) g/dL Albumin (3.5-5.0) g/dL TSH (0.465-4.680) mIU/L Influenza Type A (PCR) Not Detected (Not Detectd) Influenza Type B (PCR) Not Detected (Not Detectd) RSV (PCR) Not Detected (Not Detectd) SARS-CoV-2 (PCR) Not Detected (Not Detectd) Disposition Clinical Impression: Palpitations Disposition: HOME SELF-CARE Condition: Fair Instructions (If sedation given, give patient instructions): Heart Palpitations (ED) Is patient prescribed a controlled substance at d/c from ED?: No Referrals: Joe Marroquin MD [Primary Care Provider] - 1-2 days Time of Disposition: 21:00
[2023-01-20 19:22] LABS: Basophils % (A) 0 %; Eosinophils # (A) 0.2 k/uL (0-0.7); Eosinophils % (A) 2 %; HCT 44.9 % (34.0-46.0); HGB 15.1 gm/dL (11.4-16.0); Lymphocytes # (A) 3.4 k/uL (1.0-4.8); Lymphocytes % (A) 32 %; MCH 32.4 pg (25.0-35.0); MCHC 33.6 g/dL (31.0-37.0); MCV 96.7 fL (80.0-100.0); Mean Platelet Volume 8.7; Monocytes # (A) 0.4 k/uL (0-1.0); Monocytes % (A) 4 %; Neutrophils # (A) 6.4 k/uL (1.3-7.7); Neutrophils % (A) 61 %; Platelet Count 270 k/uL (150-450); RBC 4.65 m/uL (3.80-5.40); RDW 14.7 % (11.5-15.5); WBC 10.5 k/uL (3.8-10.6)
[2023-01-20 19:28] LABS: Partial Thromboplastin Time 22.8 sec (22.0-30.0); Prothrombin Time 10.2 sec (9.0-12.0)
[2023-01-20 19:31] LABS: ALT 55 U/L (4-34); AST 84 U/L (14-36); African American GFR (CKD) >90 (>60 ml/min/1.73 sqM); Albumin 3.9 g/dL (3.5-5.0); Alkaline Phosphatase 90 U/L (38-126); Anion Gap 9 mmol/L; Blood Urea Nitrogen 17 mg/dL (7-17); Calcium 10.3 mg/dL (8.4-10.2); Carbon Dioxide 27 mmol/L (22-30); Chloride 100 mmol/L (98-107); Glucose 159 mg/dL (74-99); Magnesium 1.6 mg/dL (1.6-2.3); Non-African American GFR(CKD) 88 (>60 ml/min/1.73 sqM); Potassium 3.9 mmol/L (3.5-5.1); Sodium 136 mmol/L (137-145); Total Bilirubin 0.9 mg/dL (0.2-1.3); Total Protein 6.7 g/dL (6.3-8.2)
--- NOTE | 2023-01-20 19:41 | XR ---
EXAMINATION TYPE: XR chest 2V DATE OF EXAM: 01/20/2023 COMPARISON: 12/14/2022 HISTORY: 67-year-old female with dysrhythmia, tachycardia TECHNIQUE: PA and lateral views FINDINGS: The cardiomediastinal silhouette, aorta, and pulmonary vasculature are within normal limits. Lungs an d pleural spaces are clear. IMPRESSION: No acute cardiopulmonary process.
[2023-01-20] MEDS ORDERED: SODIUM CHLORIDE 0.9% 500 ML 500 ML IV ONE (20:21)
[2023-01-20 21:26] VITALS: RESP 18
[2023-01-20 21:32] LABS: Amorphous Sediment,Urine Rare /hpf; Appearance,Urine Cloudy (Clear); Bilirubin,Urine Negative (Negative); Blood,Urine Negative (Negative); Color,Urine Yellow; Glucose,Urine (UA) Negative (Negative); Granular Casts,Urine 4 /lpf (0); Hyaline Casts,Urine 48 /lpf (0-2); Ketones,Urine Negative (Negative); Leukocyte Esterase,Urine Negative (Negative); Mucus,Urine Occasional /hpf; Nitrite,Urine Negative (Negative); Protein,Urine Negative (Negative); RBC,Urine 1 /hpf (0-5); Specific Gravity,Urine 1.018 (1.001-1.035); Squamous Epithelial Cell,Urine 7 /hpf (0-4); Urobilinogen,Urine <2.0 mg/dL (<2.0); WBC,Urine 4 /hpf (0-5)
[2023-01-20 22:04] VITALS: BP 127/89; PULSE 87; TEMP 98.1
== END 2023-01-20 22:05 | disposition home or self-care (01) ==
LOC: EC 18:31
DX: R00.2 Palpitations (principal); E03.9 Hypothyroidism, unspecified; Z79.890 Hormone replacement therapy; Z20.822 Contact with and (suspected) exposure to COVID-19
CPT/HCPCS: 36415; 71046; 80053; 81001; 83735; 84443; 84484; 85025; 85379; 85610; 85730; 87636; 93005; 96360; 99285

== ENCOUNTER → 2024-01-15 | Outpatient (CLI) | payer MEDICARE ==
--- NOTE | 2024-02-01 20:56 | MM ---
Reason for Exam: Screening (asymptomatic). Last mammogram was performed 7 year(s) and 0 month(s) ago. Patient History: Menarche at age 14. Patient has no children. Postmenopausal. 1989, Bilateral Implants. Risk Values: Paige 5 year model risk: 1.9%. NCI Lifetime model risk: 6.4%. Prior Study Comparison: 07/31/2008 Bilateral Diagnostic Mammogram, MERGED WITH [facility]. 12/07/2015 Bilateral Screening Mammogram, MERGED WITH [facility]. 01/12/2017 Bilateral Screening Mammogram, MERGED WITH [facility]. Tissue Density: There are scattered areas of fibroglandular density. Findings: Analyzed By CAD. Retropectoral saline implants are redemonstrated. Chronic nodularity right MLO view. There is no suspicious group of microcalcifications or new suspicious mass in either breast. Overall Assessment: Benign, BI-RAD 2 Management: Screening Mammogram of both breasts in 1 year. . Patient should continue monthly self-breast exams. A clinical breast exam by your physician is recommended on an annual basis. This exam should not preclude additional follow-up of suspicious palpable abnormalities. Note on Paige scores and lifetime risk: 1. A Paige score greater than 3% is considered moderate risk. If this is the case, consider specialist referral to assess eligibility for a risk reducing agent. 2. If overall lifetime risk for the development of breast cancer is 20% or higher, the patient may qualify for future screening with alternating mammogram and breast MRI. Electronically signed and approved by: Chato Roche M.D. Radiologist
== END | disposition home or self-care (01) ==
LOC: RADBDWWP 15:33
PROVIDERS: ATTEND Family Medicine
DX: Z12.31 Encounter for screening mammogram for malignant neoplasm of breast (principal); Z78.0 Asymptomatic menopausal state; Z98.82 Breast implant status
CPT/HCPCS: 77063; 77067

== ENCOUNTER 2024-08-20 01:15 | Emergency (ER) | payer MEDICARE ==
[2024-08-20 01:22] VITALS: TEMP 98.2
[2024-08-20 01:59] LABS: Basophils % (A) 0 %; Eosinophils # (A) 0.2 k/uL (0-0.7); Eosinophils % (A) 2 %; Lymphocytes # (A) 3.5 k/uL (1.0-4.8); Lymphocytes % (A) 37 %; MCH 32.2 pg (25.0-35.0); MCHC 33.3 g/dL (31.0-37.0); MCV 96.8 fL (80.0-100.0); Monocytes # (A) 0.5 k/uL (0-1.0); Monocytes % (A) 5 %; Neutrophils # (A) 5.3 k/uL (1.3-7.7); Neutrophils % (A) 55 %; Platelet Count 247 k/uL (150-450); RBC 4.65 m/uL (3.80-5.40); RDW 13.7 % (11.5-15.5); WBC 9.7 k/uL (3.8-10.6)
[2024-08-20] MEDS: METOPROLOL TARTRATE 12.5 MG TAB PO STA (02:02)
[2024-08-20] MEDS: ASPIRIN 81 MG PO STA (02:02)
[2024-08-20] MEDS: NITROGLYCERIN SL TABS 0.4 MG TAB SUBLINGUAL STA (02:05)
[2024-08-20 02:09] LABS: ALT 21 U/L (4-34); AST 39 U/L (14-36); African American GFR (CKD) >90 (>60 ml/min/1.73 sqM); Albumin 3.8 g/dL (3.5-5.0); Alkaline Phosphatase 102 U/L (38-126); Anion Gap 8 mmol/L; Blood Urea Nitrogen 10 mg/dL (7-17); Calcium 9.7 mg/dL (8.4-10.2); Carbon Dioxide 25 mmol/L (22-30); Chloride 100 mmol/L (98-107); Glucose 112 mg/dL (74-99); Magnesium 1.5 mg/dL (1.6-2.3); Non-African American GFR(CKD) >90 (>60 ml/min/1.73 sqM); Sodium 133 mmol/L (137-145); Total Bilirubin 1.6 mg/dL (0.2-1.3); Total Protein 6.8 g/dL (6.3-8.2)
[2024-08-20 02:43] LABS: Partial Thromboplastin Time 23.2 sec (22.0-30.0); Prothrombin Time 10.8 sec (10.0-12.5)
[2024-08-20 03:06] VITALS: RESP 16
--- NOTE | 2024-08-20 03:39 | XR ---
EXAM: XR Chest, 2 Views CLINICAL HISTORY: ITS.REASON XR Reason: Chest Pain TECHNIQUE: Frontal and lateral views of the chest. COMPARISON: XR Chest dated 01/20/23 FINDINGS: Lungs: Unremarkable. No consolidation. Pleural space: Unremarkable. No pneumothorax. Heart: Unremarkable. No cardiomegaly. Mediastinum: Unremarkable. Normal mediastinal contour. Bones/joints: Unremarkable. No acute fracture. IMPRESSION: No evidence of acute cardiopulmonary disease.
--- NOTE | 2024-08-20 03:55 | ED ---
General Adult HPI - General Chief complaint: Neuro Symptoms/Deficit Stated complaint: Lft sided numbess,jaw pain Time Seen by Provider: 08/20/24 01:34 Source: patient Mode of arrival: ambulatory Limitations: no limitations - History of Present Illness Initial comments: This patient is a 69-year-old woman who presents with complaint that she awoke with facial numbness, chest pain, some dyspnea, all around 11 PM. The patient stated that she had felt well going to bed. She states that when the symptoms did not resolve she came here to have evaluation. She does note that the symptoms have improved since she left her home to come here. She did not have diaphoresis, nausea vomiting, syncope Onset/Timin -: hour(s) Location: chest Radiation: non-radiation Quality: dull Consistency: now resolved Improves with: none Worsens with: none Associated Symptoms: chest pain, other (Paresthesias) Treatments Prior to Arrival: none - Related Data Home Medications Medication Instructions Recorded Confirmed Cyanocobalamin [Vitamin B-12 1,000 mcg SQ QMONTHLY 12/14/22 01/20/23 Injection] Levothyroxine Sodium [Synthroid] 137 mcg PO DAILY 12/14/22 01/20/23 Allergies Allergy/AdvReac Type Severity Reaction Status Date / Time No Known Allergies Allergy Verified 08/20/24 01:16 Review of Systems ROS Statement: Those systems with pertinent positive or pertinent negative responses have been documented in the HPI. ROS Other: All systems not noted in ROS Statement are negative. Constitutional: Denies: fever, chills, weakness Eyes: Denies: vision change Respiratory: Denies: cough, dyspnea Cardiovascular: Reports: chest pain, palpitations. Denies: orthopnea, edema, syncope Gastrointestinal: Denies: abdominal pain, nausea, vomiting, diarrhea Genitourinary: Denies: dysuria, hematuria Musculoskeletal: Denies: back pain Skin: Denies: rash Neurological: Reports: paresthesias. Denies: headache, weakness, numbness Past Medical History Past Medical History: Hyperlipidemia, Thyroid Disorder Additional Past Medical History / Comment(s): back pain, cervical pain, L shou lder pain, numbness/tingling L shoulder, L arm and L hand at times for years, hypothyroid, recent R thumb sprain-healed, current R ankle tendon tear. History of Any Multi-Drug Resistant Organisms: None Reported Past Surgical History: Appendectomy, Breast Surgery, Orthopedic Surgery Additional Past Surgical History / Comment(s): Thyroid chemically removed, L ankle fx with pinning, colonoscopy, bilateral breast augmentation, Past Anesthesia/Blood Transfusion Reactions: No Reported Reaction Past Psychological History: Anxiety Smoking Status: Never smoker Past Alcohol Use History: Daily Past Drug Use History: None Reported - Past Family History Father Family Medical History: Coronary Artery Disease (CAD), Renal Disease Additional Family Medical History / Comment(s): Father of kidney failure at the age of 87yrs. Mother Family Medical History: Osteoarthritis (OA) Additional Family Medical History / Comment(s): Mother at 84 yrs. General Exam Limitations: no limitations General appearance: alert, in no apparent distress, anxious Head exam: Present: atraumatic, normocephalic Eye exam: Present: normal appearance, PERRL, EOMI. Absent: scleral icterus, conjunctival injection ENT exam: Present: normal oropharynx Neck exam: Present: normal inspection, full ROM Respiratory exam: Present: normal lung sounds bilaterally. Absent: respiratory distress, wheezes, rales, rhonchi, stridor, accessory muscle use Cardiovascular Exam: Present: regular rate, normal rhythm, normal heart sounds. Absent: systolic murmur, diastolic murmur, rubs, gallop GI/Abdominal exam: Present: soft. Absent: distended, tenderness, guarding, rebound, rigid, mass Extremities exam: Present: normal inspection, normal capillary refill. Absent: pedal edema, calf tenderness Back exam: Present: normal inspection. Absent: CVA tenderness (R), CVA tenderness (L) Neurological exam: Present: alert Skin exam: Present: warm, dry, intact, normal color. Absent: rash Course Vital Signs 08/20/24 08/20/24 08/20/24 01:17 01:44 03:05 Temperature 98.2 F Pulse Rate 108 H 85 69 Respiratory 18 18 16 Rate Blood Pressure 164/127 161/122 113/68 O2 Sat by Pulse 98 97 99 Oximetry 08/20/24 04:05 Temperature Pulse Rate 62 Respiratory 16 Rate Blood Pressure 124/84 O2 Sat by Pulse 97 Oximetry EKG Findings - EKG Results: EKG: interpreted by ERMD, sinus rhythm (Rate 86 bpm), normal axis - Blocks, Adams, Hypertrophy, ST Abn: QRS axis and voltage: low voltage (<0.5 MV total QRS and <1.0 MV in each precordial lead) Repolarization changes or abnormalities: nonspecific abnormality, ST segment, and/or T wave Medical Decision Making - Medical Decision Making The patient had chest x-ray that I interpreted as negative for acute infiltrate, pneumothorax, congestive heart failure Was pt. sent in by a medical professional or institution (CHARAN Soria, LANDSCAPE PHOTOGRAPHER, urgent care, hospital, or snf...) When possible be specific @ -[No] Did you speak to anyone other than the patient for history (EMS, parent, family, police, friend...)? What history was obtained from this source @ -[No] Did you review nursing and triage notes (agree or disagree)? Why? @ -[I reviewed and agree with nursing and triage notes] Were old charts reviewed (outside hosp., previous admission, EMS record, old EKG, old radiological studies, urgent care reports/EKG's, snf records)? Report findings @ -[No old charts were reviewed] Differential Diagnosis (chest pain, altered mental status, abdominal pain women, abdominal pain men, vaginal bleeding, weakness, fever, dyspnea, syncope, headache, dizziness, GI bleed, back pain, seizure, CVA, palpatations, mental health, musculoskeletal)? @ -[not applicable] EKG interpreted by me (3pts min.). @ -[As above] X-rays interpreted by me (1pt min.). @ -[None done] CT interpreted by me (1pt min.). @ -[None done] U/S interpreted by me (1pt. min.). @ -[None done] What testing was considered but not performed or refused? (CT, X-rays, U/S, labs)? Why? @ -[None] What meds were considered but not given or refused? Why? @ -[None] Did you discuss the management of the patient with other professionals (professionals i.e. CHARAN Soria, LANDSCAPE PHOTOGRAPHER, lab, RT, psych nurse, director of social services, supervisor painting shipyard, teacher, maritime officer, supportive employment case manager)? Give summary @ -[No] Was smoking cessation discussed for >3mins.? @ -[No] Was critical care preformed (if so, how long)? @ -[No] Were there social determinants of health that impacted care today? How? (Homelessness, low income, unemployed, alcoholism, drug addiction, transportation, low edu. Level, literacy, decrease access to med. care, longterm, rehab)? @ -[No] Was there de-escalation of care discussed even if they declined (Discuss DNR or withdrawal of care, Hospice)? DNR status @ -[No] What co-morbidities impacted this encounter? (DM, HTN, Smoking, COPD, CAD, Cancer, CVA, ARF, Chemo, Hep., AIDS, mental health diagnosis, sleep apnea, morbid obesity)? @ -[None] Was patient admitted / discharged? Hospital course, mention meds given and route, prescriptions, significant lab abnormalities, going to OR and other pertinent info. @ -[Patient is 69-year-old woman here to have evaluation for constellation of symptoms. Her workup here is unremarkable. I did offer the patient admission to have further evaluation for her symptoms but the patient declines she would like to follow-up as outpatient. Given the patient's presentation, suggest sleep study for possible sleep apnea. we discussed appropriate further care as well as return parameters. Undiagnosed new problem with uncertain prognosis? @ -[No] Drug Therapy requiring intensive monitoring for toxicity (Heparin, Nitro, Insulin, Cardizem)? @ -[No] Were any procedures done? @ -[No] Diagnosis/symptom? @ -[Acute chest pain Acute paresthesias, facial Hypertension Hypomagnesemia Acute, or Chronic, or Acute on Chronic? @ -[Acute Uncomplicated (without systemic symptoms) or Complicated (systemic symptoms)? @ -[default] Side effects of treatment? @ -[No] Exacerbation, Progression, or Severe Exacerbation? @ -[No] Poses a threat to life or bodily function? How? (Chest pain, USA, [place], pneumonia, PE, COPD, DKA, ARF, appy, cholecystitis, CVA, Diverticulitis, Homicidal, Suicidal, threat to staff... and all critical care pts) @ -[No] All treatments are based on ideal body weight as in ED triage - Lab Data Result diagrams: 08/20/24 01:52 08/20/24 01:52 Lab Results 08/20/24 08/20/24 08/20/24 Range/Units 01:52 01:52 01:52 WBC 9.7 (3.8-10.6) k/uL RBC 4.65 (3.80-5.40) m/uL Hgb 15.0 (11.4-16.0) gm/dL Hct 45.0 (34.0-46.0) % MCV 96.8 (80.0-100.0) fL MCH 32.2 (25.0-35.0) pg MCHC 33.3 (31.0-37.0) g/dL RDW 13.7 (11.5-15.5) % Plt Count 247 (150-450) k/uL MPV 8.0 Neutrophils % 55 % Lymphocytes % 37 % Monocytes % 5 % Eosinophils % 2 % Basophils % 0 % Neutrophils # 5.3 (1.3-7.7) k/uL Lymphocytes # 3.5 (1.0-4.8) k/uL Monocytes # 0.5 (0-1.0) k/uL Eosinophils # 0.2 (0-0.7) k/uL Basophils # 0.0 (0-0.2) k/uL PT 10.8 (10.0-12.5) sec INR 1.0 (<1.2) APTT 23.2 (22.0-30.0) sec D-Dimer 0.46 (<0.60) mg/L FEU Sodium 133 L (137-145) mmol/L Potassium 5.0 (3.5-5.1) mmol/L Chloride 100 (98-107) mmol/L Carbon Dioxide 25 (22-30) mmol/L Anion Gap 8 mmol/L BUN 10 (7-17) mg/dL Creatinine 0.61 (0.52-1.04) mg/dL Est GFR (CKD-EPI)AfAm >90 (>60 ml/min/1.73 sqM) Est GFR (CKD-EPI)NonAf >90 (>60 ml/min/1.73 sqM) Glucose 112 H (74-99) mg/dL Calcium 9.7 (8.4-10.2) mg/dL Magnesium 1.5 L (1.6-2.3) mg/dL Total Bilirubin 1.6 H (0.2-1.3) mg/dL AST 39 H (14-36) U/L ALT 21 (4-34) U/L Alkaline Phosphatase 102 (38-126) U/L Troponin I (0.000-0.034) ng/mL Total Protein 6.8 (6.3-8.2) g/dL Albumin 3.8 (3.5-5.0) g/dL 08/20/24 Range/Units 01:52 WBC (3.8-10.6) k/uL RBC (3.80-5.40) m/uL Hgb (11.4-16.0) gm/dL Hct (34.0-46.0) % MCV (80.0-100.0) fL MCH (25.0-35.0) pg MCHC (31.0-37.0) g/dL RDW (11.5-15.5) % Plt Count (150-450) k/uL MPV Neutrophils % % Lymphocytes % % Monocytes % % Eosinophils % % Basophils % % Neutrophils # (1.3-7.7) k/uL Lymphocytes # (1.0-4.8) k/uL Monocytes # (0-1.0) k/uL Eosinophils # (0-0.7) k/uL Basophils # (0-0.2) k/uL PT (10.0-12.5) sec INR (<1.2) APTT (22.0-30.0) sec D-Dimer (<0.60) mg/L FEU Sodium (137-145) mmol/L Potassium (3.5-5.1) mmol/L Chloride (98-107) mmol/L Carbon Dioxide (22-30) mmol/L Anion Gap mmol/L BUN (7-17) mg/dL Creatinine (0.52-1.04) mg/dL Est GFR (CKD-EPI)AfAm (>60 ml/min/1.73 sqM) Est GFR (CKD-EPI)NonAf (>60 ml/min/1.73 sqM) Glucose (74-99) mg/dL Calcium (8.4-10.2) mg/dL Magnesium (1.6-2.3) mg/dL Total Bilirubin (0.2-1.3) mg/dL AST (14-36) U/L ALT (4-34) U/L Alkaline Phosphatase (38-126) U/L Troponin I <0.012 (0.000-0.034) ng/mL Total Protein (6.3-8.2) g/dL Albumin (3.5-5.0) g/dL Disposition Clinical Impression: Chest pain, Paresthesias, Hypertension Disposition: HOME SELF-CARE Condition: Good Instructions (If sedation given, give patient instructions): Chest Pain (ED), Hypertension (ED) Is patient prescribed a controlled substance at d/c from ED?: No Referrals: Joe Marroquin MD [Primary Care Provider] - 1-2 days
[2024-08-20 04:07] VITALS: BP 124/84; PULSE 62
== END 2024-08-20 04:09 | disposition home or self-care (01) ==
LOC: EC 01:15
DX: R07.9 Chest pain, unspecified (principal); R20.2 Paresthesia of skin; I10 Essential (primary) hypertension
CPT/HCPCS: 36415; 71046; 80053; 83735; 84484; 85025; 85379; 85610; 85730; 93005; 99284

== ENCOUNTER → 2024-08-26 | Outpatient (CLI) | payer MEDICARE ==
--- NOTE | 2024-08-26 08:34 | US ---
EXAMINATION TYPE: US carotid duplex BILAT DATE OF EXAM: 08/26/2024 COMPARISON: NONE CLINICAL INDICATION: Female, 69 years old with history of G45.9 TRANSIENT CEREBRAL ISCHEMIC ATTACK, U NSPECIF; TIA Additional History: .... TECHNIQUE: Grayscale, color Doppler and spectral Doppler evaluation of the bilateral carotid systems and vertebral arteries. Indirect Doppler criteria was utilized. FINDINGS: EXAM MEASUREMENTS: RIGHT: Peak Systolic Velocity (PSV) cm/sec ----- Right CCA: 84.1 ----- Right ICA: 76.9 ----- Right ECA: 62.8 ICA/CCA ratio: 0.9 RIGHT: End Diastole cm/sec ----- Right CCA: 27.5 ----- Right ICA: 24.6 ----- Right ECA: 19.2 LEFT: Peak Systolic Velocity (PSV) cm/sec ----- Left CCA: 77.9 ----- Left ICA: 81.1 ----- Left ECA: 50.9 ICA/CCA ratio: 1.0 LEFT: End Diastole cm/sec ----- Left CCA: 27.8 ----- Left ICA: 39.1 ----- Left ECA: 15.3 VERTEBRALS (direction of flow): Right Vertebral: Antegrade Left Vertebral: Antegrade Rhythm: Normal OUTBOARD MOTOR TESTER NOTES: No significant stenosis seen Color Doppler imaging shows patency with blood flow throughout the carotid artery. Spectral waveforms are within normal limits. IMPRESSION: Right: No hemodynamically significant stenosis. Left: No hemodynamically significant stenosis. Criteria for Assigning % of Stenosis / Diameter reduction (Estimation based on the indirect measurements of the internal carotid artery velocities (ICA PSV). 1. Normal (no stenosis)=ICA PSV < 180 cm/s: ratio < 2.0: ICA EDV<40 cm/s. 2. Less than 50% stenosis=ICA PSV < 180 cm/s: ratio < 2.0: ICA EDV<40 cm/s. 3. 50 to 69% stenosis=ICA PSV of 180 to 230 cm/s: ration 2.0 ? 4.0: ICA EDV 40-100 cm/s. PSV 125-180 cm/sec and ICA/CCA PSV Ratio ? 2.0 is also consistent with 50-69% stenosis 4. Greater than 70% stenosis to near occlusion= ICA PSV > 230 cm/s: ratio > 4.0: ICA EDV > 100 cm/s. 5. Near occlusion= ICA PSV velocities may be low or undetectable: variable ratio and ICA EDV. 6. Total occlusion=unable to detect flow. [facility], , 08/26/2024 8:32 AM
== END | disposition home or self-care (01) ==
LOC: RADUSWWP 07:44
PROVIDERS: ATTEND Family Medicine
DX: G45.9 Transient cerebral ischemic attack, unspecified (principal)
CPT/HCPCS: 93880

== ENCOUNTER 2024-11-20 10:00 | Emergency (ER) | payer MEDICARE ==
--- NOTE | 2024-11-20 10:19 | ED ---
Arrhythmia/Palpitations HPI - General Source: patient, RN notes reviewed Mode of arrival: ambulatory Limitations: no limitations <Yvonne Dailey - Last Filed: 11/20/24 10:17> <Martina Her - Last Filed: 11/20/24 20:59> - General Chief Complaint: Arrhythmia/Palpitations Stated Complaint: Heart rate is high Time Seen by Provider: 11/20/24 10:18 - History of Present Illness Initial Comments: Quick [id number] female presenting for high heart rate x 1 hour. States she cannot get her heart rate to come down from the [id number]. Denies chest pain or shortness of breath. States she can feel her heart beating in her neck. She did see a forming roll operator for screening tests 3 weeks ago. Denies any other significant medical history. (Yvonne Dailey) - Related Data Home Medications Medication Instructions Recorded Confirmed Levothyroxine Sodium [Unithroid] 125 mcg PO DAILY 11/20/24 11/20/24 Previous Rx's Medication Instructions Recorded Levothyroxine Sodium 112 mcg PO DAILY #30 tab 11/20/24 Allergies Allergy/AdvReac Type Severity Reaction Status Date / Time No Known Allergies Allergy Verified 11/20/24 15:00 Review of Systems ROS Other: All systems not noted in ROS Statement are negative. <Yvonne Dailey - Last Filed: 11/20/24 10:17> ROS Other: All systems not noted in ROS Statement are negative. <Martina Her - Last Filed: 11/20/24 20:59> ROS Statement: Those systems with pertinent positive or pertinent negative responses have been documented in the HPI. Past Medical History Past Medical History: Hyperlipidemia, Thyroid Disorder Additional Past Medical History / Comment(s): back pain, cervical pain, L shoulder pain, numbness/tingling L shoulder, L arm and L hand at times for y ears, hypothyroid, recent R thumb sprain-healed, current R ankle tendon tear. History of Any Multi-Drug Resistant Organisms: None Reported Past Surgical History: Appendectomy, Breast Surgery, Orthopedic Surgery Additional Past Surgical History / Comment(s): Thyroid chemically removed, L ankle fx with pinning, colonoscopy, bilateral breast augmentation, Past Anesthesia/Blood Transfusion Reactions: No Reported Reaction Past Psychological History: Anxiety Smoking Status: Never smoker Past Alcohol Use History: Daily Past Drug Use History: None Reported - Past Family History Father Family Medical History: Coronary Artery Disease (CAD), Renal Disease Additional Family Medical History / Comment(s): Father of kidney failure at the age of 87yrs. Mother Family Medical History: Osteoarthritis (OA) Additional Family Medical History / Comment(s): Mother at 84 yrs. <Yvonne Dailey - Last Filed: 11/20/24 10:17> General Exam Limitations: no limitations <Yvonne Dailey - Last Filed: 11/20/24 10:17> - General Exam Comments Initial Comments: Visual Physical Exam Vital signs reviewed General: Well-appearing, nontoxic, no acute distress. Head: Normocephalic, atraumatic Eyes: PERRLA, EOMI ENT: Airway patent Chest: Nonlabored breathing Skin: No visual rash, normal skin tone Neuro: Alert and oriented 3 Musculoskeletal: No gross abnormalities (Yvonne Dailey) Course Vital Signs 11/20/24 11/20/24 11/20/24 10:11 14:03 14:58 Temperature 97.9 F 98.1 F Pulse Rate 129 H 89 91 Respiratory 15 16 18 Rate Blood Pressure 145/84 133/94 134/80 O2 Sat by Pulse 97 97 96 Oximetry 11/20/24 11/20/24 15:34 15:59 Temperature 98.5 F Pulse Rate 84 Respiratory 16 Rate Blood Pressure 140/84 O2 Sat by Pulse 98 Oximetry Medical Decision Making <Yvonne Dailey - Last Filed: 11/20/24 10:17> - Lab Data Result diagrams: 11/20/24 10:51 11/20/24 10:51 <Martina Her - Last Filed: 11/20/24 20:59> - Medical Decision Making I completed the quick note portion of this chart signed Yvonne Dailey PA-C (Yvonne Dailey) Was pt. sent in by a medical professional or institution (CHARAN Soria, GOLF RANGE ATTENDANT, urgent care, hospital, or senior living...) When possible be specific @ -[No] Did you speak to anyone other than the patient for history (EMS, parent, family, police, friend...)? What history was obtained from this source @ -[No] Did you review nursing and triage notes (agree or disagree)? Why? @ -[I reviewed and agree with nursing and triage notes] Were old charts reviewed (outside hosp., previous admission, EMS record, old EKG, old radiological studies, urgent care reports/EKG's, senior living records)? Report findings @ -[No old charts were reviewed] Differential Diagnosis (chest pain, altered mental status, abdominal pain women, abdominal pain men, vaginal bleeding, weakness, fever, dyspnea, syncope, headache, dizziness, GI bleed, back pain, seizure, CVA, palpatations, mental health, musculoskeletal)? @ -[not applicable] EKG interpreted by me (3pts min.). @ -Yes which demonstrates sinus tachycardia with a rate of 120. OH interval 156. QRS 66. QTc of 374. No acute ST segment elevations or depressions X-rays interpreted by me (1pt min.). @ -[None done] CT interpreted by me (1pt min.). @ -[None done] U/S interpreted by me (1pt. min.). @ -[None done] What testing was considered but not performed or refused? (CT, X-rays, U/S, labs)? Why? @ -[None] What meds were considered but not given or refused? Why? @ -[None] Did you discuss the management of the patient with other professionals (professionals i.e. , PA, GOLF RANGE ATTENDANT, lab, RT, psych nurse, school social worker, oil field caser, teacher, branch lending officer, oil field caser)? Give summary @ -[No] Was smoking cessation discussed for >3mins.? @ -[No] Was critical care preformed (if so, how long)? @ -[No] Were there social determinants of health that impacted care today? How? (Homelessness, low income, unemployed, alcoholism, drug addiction, transportation, low edu. Level, literacy, decrease access to med. care, usp, rehab)? @ -[No] Was there de-escalation of care discussed even if they declined (Discuss DNR or withdrawal of care, Hospice)? DNR status @ -[No] What co-morbidities impacted this encounter? (DM, HTN, Smoking, COPD, CAD, Cancer, CVA, ARF, Chemo, Hep., AIDS, mental health diagnosis, sleep apnea, morbid obesity)? @ -[None] Was patient admitted / discharged? Hospital course, mention meds given and route, prescriptions, significant lab abnormalities, going to OR and other pertinent info. @ -[hospital course] Undiagnosed new problem with uncertain prognosis? @ -[No] Drug Therapy requiring intensive monitoring for toxicity (Heparin, Nitro, Insulin, Cardizem)? @ -[No] Were any procedures done? @ -[No] Diagnosis/symptom? @ -[default] Acute, or Chronic, or Acute on Chronic? @ -[default] Uncomplicated (without systemic symptoms) or Complicated (systemic symptoms)? @ -[default] Side effects of treatment? @ -[No] Exacerbation, Progression, or Severe Exacerbation? @ -[No] Poses a threat to life or bodily function? How? (Chest pain, USA, [place], pneumonia, PE, COPD, DKA, ARF, appy, cholecystitis, CVA, Diverticulitis, Homicidal, Suicidal, threat to staff... and all critical care pts) @ -[No] (Martina Her) - Lab Data Lab Results 11/20/24 11/20/24 11/20/24 Range/Units 10:51 10:51 10:51 WBC 7.60 (4.50-10.00) 10*3/uL RBC 4.07 L (4.10-5.20) 10*6/uL Hgb 14.2 (12.0-15.0) g/dL Hct 40.7 (37.2-46.3) % MCV 100.0 H (80.0-97.0) fL MCH 34.9 H (27.0-32.0) pg MCHC 34.9 (32.0-37.0) g/dL Plt Count 226 (140-440) 10*3/uL MPV 9.4 L (9.5-12.2) fL Immature Gran % (Auto) 0.4 % Neutrophils % 60.3 % Lymphocytes % 32.2 % Monocytes % 5.1 % Eosinophils % 1.2 % Basophils % 0.8 % Immature Gran # 0.03 (0.00-0.04) 10*3/uL Neutrophils # 4.58 (1.80-7.70) 10*3/uL Lymphocytes # 2.45 (0.90-5.00) 10*3/uL Monocytes # 0.39 (0.20-1.00) 10*3/uL Eosinophils # 0.09 (0.04-0.35) 10*3/uL Basophils # 0.06 (0.00-0.10) 10*3/uL PT 10.2 (10.0-12.5) sec INR 0.9 (<1.2) APTT 22.1 (22.0-30.0) sec Sodium 138 (137-145) mmol/L Potassium 4.0 (3.5-5.1) mmol/L Chloride 105 (98-107) mmol/L Carbon Dioxide 23 (22-30) mmol/L Anion Gap 10 mmol/L BUN 10 (7-17) mg/dL Creatinine 0.50 L (0.52-1.04) mg/dL Est GFR (CKD-EPI)AfAm >90 (>60 ml/min/1.73 sqM) Est GFR (CKD-EPI)NonAf >90 (>60 ml/min/1.73 sqM) Glucose 122 H (74-99) mg/dL Calcium 10.1 (8.4-10.2) mg/dL Magnesium 1.7 (1.6-2.3) mg/dL Total Bilirubin 0.5 (0.2-1.3) mg/dL AST 40 H (14-36) U/L ALT 25 (4-34) U/L Alkaline Phosphatase 126 (38-126) U/L Troponin I (0.000-0.034) ng/mL Total Protein 6.3 (6.3-8.2) g/dL Albumin 3.7 (3.5-5.0) g/dL TSH <0.015 L (0.465-4.680) mIU/L Free T4 2.42 H (0.78-2.19) ng/dL Influenza Type A (PCR) (Not Detectd) Influenza Type B (PCR) (Not Detectd) RSV (PCR) (Not Detectd) SARS-CoV-2 (PCR) (Not Detectd) 11/20/24 11/20/24 Range/Units 10:51 10:53 WBC (4.50-10.00) 10*3/uL RBC (4.10-5.20) 10*6/uL Hgb (12.0-15.0) g/dL Hct (37.2-46.3) % MCV (80.0-97.0) fL MCH (27.0-32.0) pg MCHC (32.0-37.0) g/dL Plt Count (140-440) 10*3/uL MPV (9.5-12.2) fL Immature Gran % (Auto) % Neutrophils % % Lymphocytes % % Monocytes % % Eosinophils % % Basophils % % Immature Gran # (0.00-0.04) 10*3/uL Neutrophils # (1.80-7.70) 10*3/uL Lymphocytes # (0.90-5.00) 10*3/uL Monocytes # (0.20-1.00) 10*3/uL Eosinophils # (0.04-0.35) 10*3/uL Basophils # (0.00-0.10) 10*3/uL PT (10.0-12.5) sec INR (<1.2) APTT (22.0-30.0) sec Sodium (137-145) mmol/L Potassium (3.5-5.1) mmol/L Chloride (98-107) mmol/L Carbon Dioxide (22-30) mmol/L Anion Gap mmol/L BUN (7-17) mg/dL Creatinine (0.52-1.04) mg/dL Est GFR (CKD-EPI)AfAm (>60 ml/min/1.73 sqM) Est GFR (CKD-EPI)NonAf (>60 ml/min/1.73 sqM) Glucose (74-99) mg/dL Calcium (8.4-10.2) mg/dL Magnesium (1.6-2.3) mg/dL Total Bilirubin (0.2-1.3) mg/dL AST (14-36) U/L ALT (4-34) U/L Alkaline Phosphatase (38-126) U/L Troponin I <0.012 (0.000-0.034) ng/mL Total Protein (6.3-8.2) g/dL Albumin (3.5-5.0) g/dL TSH (0.465-4.680) mIU/L Free T4 (0.78-2.19) ng/dL Influenza Type A (PCR) Not Detected (Not Detectd) Influenza Type B (PCR) Not Detected (Not Detectd) RSV (PCR) Not Detected (Not Detectd) SARS-CoV-2 (PCR) Not Detected (Not Detectd) Disposition <Yvonne Dailey - Last Filed: 11/20/24 10:17> Is patient prescribed a controlled substance at d/c from ED?: No Time of Disposition: 15:49 <Martina Her - Last Filed: 11/20/24 20:59> Clinical Impression: Tachycardia Disposition: HOME SELF-CARE Condition: Stable Instructions (If sedation given, give patient instructions): Heart Palpitations (ED) Additional Instructions: I will adjust your medications when Dr. Oneal returns my call. Return for any new or worsening symptoms Prescriptions: Levothyroxine Sodium 112 mcg PO DAILY #30 tab Referrals: Joe Marroquin MD [Primary Care Provider] - 1-2 days Bj Oneal MD [REFERRING] - 1-2 days
[2024-11-20 11:05] LABS: Basophils # (A) 0.06 10*3/uL (0.00-0.10); Basophils % (A) 0.8 %; Eosinophils # (A) 0.09 10*3/uL (0.04-0.35); Eosinophils % (A) 1.2 %; HCT 40.7 % (37.2-46.3); HGB 14.2 g/dL (12.0-15.0); Lymphocytes # (A) 2.45 10*3/uL (0.90-5.00); Lymphocytes % (A) 32.2 %; MCH 34.9 pg (27.0-32.0); MCHC 34.9 g/dL (32.0-37.0); Mean Platelet Volume 9.4 fL (9.5-12.2); Monocytes # (A) 0.39 10*3/uL (0.20-1.00); Monocytes % (A) 5.1 %; Neutrophils # (A) 4.58 10*3/uL (1.80-7.70); Neutrophils % (A) 60.3 %; Platelet Count 226 10*3/uL (140-440); RBC 4.07 10*6/uL (4.10-5.20); RDW 15.1 % (11.5-14.5)
[2024-11-20 11:18] LABS: INR 0.9 (<1.2); Partial Thromboplastin Time 22.1 sec (22.0-30.0); Prothrombin Time 10.2 sec (10.0-12.5)
--- NOTE | 2024-11-20 11:22 | XR ---
EXAMINATION TYPE: XR chest 2V DATE OF EXAM: 11/20/2024 11:19 AM COMPARISON: 08/20/2024 CLINICAL INDICATION: Female, 69 years old with history of heart palpitations, TECHNIQUE: XR chest 2V view(s) obtained. FINDINGS: The heart size is normal. The pulmonary vasculature is normal. The lungs are clear. IMPRESSION: 1. No acute pulmonary process. [facility], , 11/20/2024 11:20 AM
[2024-11-20 11:28] LABS: ALT 25 U/L (4-34); AST 40 U/L (14-36); African American GFR (CKD) >90 (>60 ml/min/1.73 sqM); Albumin 3.7 g/dL (3.5-5.0); Alkaline Phosphatase 126 U/L (38-126); Anion Gap 10 mmol/L; Blood Urea Nitrogen 10 mg/dL (7-17); Calcium 10.1 mg/dL (8.4-10.2); Carbon Dioxide 23 mmol/L (22-30); Chloride 105 mmol/L (98-107); Glucose 122 mg/dL (74-99); Magnesium 1.7 mg/dL (1.6-2.3); Non-African American GFR(CKD) >90 (>60 ml/min/1.73 sqM); Sodium 138 mmol/L (137-145); Total Bilirubin 0.5 mg/dL (0.2-1.3); Total Protein 6.3 g/dL (6.3-8.2)
[2024-11-20 11:43] LABS: Influenza A Not Detected (Not Detectd); Influenza B Not Detected (Not Detectd); RSV Not Detected (Not Detectd)
[2024-11-20 12:24] LABS: T4, Free (Free Thyroxine) 2.42 ng/dL (0.78-2.19)
[2024-11-20 15:36] VITALS: BP 140/84; PULSE 84; RESP 16
[2024-11-20 16:00] VITALS: TEMP 98.5
== END 2024-11-20 16:05 | disposition home or self-care (01) ==
LOC: EC 10:00
DX: R00.0 Tachycardia, unspecified (principal); Z11.52 Encounter for screening for COVID-19
CPT/HCPCS: 36415; 71046; 80053; 83735; 84439; 84443; 84484; 85025; 85610; 85730; 87636; 93005; 99285